=== PATIENT | female | born 1995 | race Caucasian/White ===

== ENCOUNTER 2018-07-07 23:21 | Emergency (ER) | payer BC, OTHER ==
[2018-07-07] MEDS ORDERED: NS 1,000 ML IV ONE (23:39)
[2018-07-07] MEDS ORDERED: ONDANSETRON 4 MG/2 ML VIAL IVP ONE (23:39)
[2018-07-08 00:26] LABS: PLATELET COUNT 250 10^3/uL (150-400)
--- NOTE | 2018-07-08 00:27 | EDPHY ---
H & P Stated Complaint: NAUSEA VOMITING AND DIARRHEA AFTER SUSHI Time Seen by Provider: 07/07/18 23:38 HPI/ROS: HPI The patient presents with nausea, vomiting, diarrhea which began at about 9:30 p.m. Tonight. Symptoms began with nausea and then about 30 min later she had 5 episodes of nonbloody nonbilious emesis accompanied by diarrhea which she describes as loose watery stools. She says she was shivering but did not have any fevers. As she is now still feeling nauseated with cramping diffuse abdominal pain. As she ate a meal of sushi which included raw fish at about 4: 00 p.m.. She is status post appendectomy.. REVIEW OF SYSTEMS 10 systems were reviewed and negative with the exception of the elements mentioned in the history of present illness. PMHx: She has had an appendectomy Soc Hx: Student at [employer] PHYSICAL General Appearance: Alert, no distress Eyes: Pupils equal and round no pallor or injection ENT, Mouth: Mucous membranes moist Respiratory: There are no retractions, lungs are clear to auscultation Cardiovascular: Regular rate and rhythm Gastrointestinal: Abdomen is soft and non-tender, no masses, bowel sounds normal Neurological: A&O, moves all extremities Skin: Warm and dry, no rashes Musculoskeletal: Neck is supple non tender Extremities: symmetrical, full range of motion Psychiatric: Patient is oriented X 3, there is no agitation Source: Patient Exam Limitations: No limitations - Personal History LMP (Females 10-55): 22-28 Days Ago Current Tetanus/Diphtheria Vaccine: Yes Current Tetanus Diphtheria and Acellular Pertussis (TDAP): Yes Tetanus Vaccine Date: <5 years - Medical/Surgical History Hx Asthma: No Hx Chronic Respiratory Disease: No Hx Diabetes: No Hx Cardiac Disease: No Hx Renal Disease: No Hx Cirrhosis: No Hx Alcoholism: No Hx HIV/AIDS: No Hx Splenectomy or Spleen Trauma: No Other PMH: PMH: "childhood kidney problems", gastritis,. PSH: wisdom teeth removed, appy 2016 - Social History Smoking Status: Former smoker Constitutional: Initial Vital Signs Temperature (C) 37.1 C 07/07/18 23:25 Heart Rate 70 07/07/18 23:25 Respiratory Rate 18 07/07/18 23:25 Blood Pressure 134/74 H 07/07/18 23:25 O2 Sat (%) 97 07/07/18 23:25 O2 Delivery Mode Room Air Allergies/Adverse Reactions: No Known Allergies Allergy (Unverified 07/07/18 23:27) Home Medications: Medication Instructions Recorded NK [No Known Home Meds] 07/07/18 Medical Decision Making Differential Diagnosis: 23-year-old female presents with about 1 hr of nausea, vomiting, diarrhea. On exam, she is well-appearing, vital signs normal, abdominal exam benign. Differential diagnosis includes toxin mediated enterocolitis, viral gastroenteritis, less likely diverticulitis. In the emergency department, patient received IV fluids, Zofran. Labs were checked and were unremarkable. She feels well enough to go home and was able to tolerate a p.o. Challenge. I suspect food poisoning. I have explained this to her. - Data Points Laboratory Results: Laboratory Results 07/07/18 23:50 07/07/18 23:50 07/07/18 07/07/18 23:50 23:50 WBC 10.87 10^3/uL H 10^3/uL (3.80-9.50) RBC 4.54 10^6/uL 10^6/uL (4.18-5.33) Hgb 14.3 g/dL g/dL (12.6-16.3) Hct 41.8 % % (38.0-47.0) MCV 92.1 fL fL (81.5-99.8) MCH 31.5 pg pg (27.9-34.1) MCHC 34.2 g/dL g/dL (32.4-36.7) RDW 12.5 % % (11.5-15.2) Plt Count 250 10^3/uL 10^3/uL (150-400) MPV 10.1 fL fL (8.7-11.7) Neut % (Auto) 60.0 % % (39.3-74.2) Lymph % (Auto) 29.7 % % (15.0-45.0) Divide % (Auto) 6.5 % % (4.5-13.0) Eos % (Auto) 2.7 % % (0.6-7.6) Baso % (Auto) 0.8 % % (0.3-1.7) Nucleat RBC Rel Count 0.0 % % (0.0-0.2) Absolute Neuts (auto) 6.52 10^3/uL H 10^3/uL (1.70-6.50) Absolute Lymphs (auto) 3.23 10^3/uL H 10^3/uL (1.00-3.00) Absolute Monos (auto) 0.71 10^3/uL 10^3/uL (0.30-0.80) Absolute Eos (auto) 0.29 10^3/uL 10^3/uL (0.03-0.40) Absolute Basos (auto) 0.09 10^3/uL 10^3/uL (0.02-0.10) Absolute Nucleated RBC 0.00 10^3/uL 10^3/uL (0-0.01) Immature Gran % 0.3 % % (0.0-1.1) Immature Gran # 0.03 10^3/uL 10^3/uL (0.00-0.10) Sodium 142 mEq/L mEq/L (135-145) Potassium 3.9 mEq/L mEq/L (3.3-5.0) Chloride 104 mEq/L mEq/L (97-110) Carbon Dioxide 27 mEq/l mEq/l (22-31) Anion Gap 11 mEq/L mEq/L (8-16) BUN 18 mg/dL mg/dL (7-23) Creatinine 0.6 mg/dL mg/dL (0.6-1.0) Estimated GFR > 60 Glucose 115 mg/dL H mg/dL (70-100) Calcium 9.4 mg/dL mg/dL (8.5-10.4) Total Bilirubin 0.4 mg/dL mg/dL (0.1-1.4) AST 26 IU/L IU/L (14-46) ALT 32 IU/L IU/L (9-52) Alkaline Phosphatase 80 IU/L IU/L (38-126) Total Protein 7.3 g/dL g/dL (6.3-8.2) Albumin 4.3 g/dL g/dL (3.5-5.0) Medications Given: Discontinued Medications Sodium Chloride (Ns) 1,000 mls @ 0 mls/hr IV ONCE ONE; Wide Open PRN Reason: Protocol Stop: 07/07/18 23:40 Last Admin: 07/07/18 23:47 Dose: 1,000 mls Ondansetron HCl (Zofran) 4 mg IVP EDNOW ONE Stop: 07/07/18 23:40 Last Admin: 07/07/18 23:47 Dose: 4 mg Ondansetron HCl (Zofran) 4 mg IVP EDNOW ONE Stop: 07/08/18 00:38 Last Admin: 07/08/18 00:40 Dose: 4 mg Ondansetron HCl (Zofran Odt 4 Mg Prepack#2) 1 btl TAKEHOME EDNOW ONE Stop: 07/08/18 02:31 Last Admin: 07/08/18 02:49 Dose: 1 btl Departure - Departure Disposition: Home, Routine, Self-Care Clinical Impression: Vomiting and diarrhea Condition: Good Instructions: Gastroenteritis (ED) Additional Instructions: Please return to the emergency department if your worse in any way. Referrals: [facility] [Clinic] - As per Instructions Stand Alone Forms: School Excuse
[2018-07-08] MEDS ORDERED: ONDANSETRON 4 MG/2 ML VIAL IVP ONE (00:37)
[2018-07-08] MEDS ORDERED: ONDANSETRON 4MG PREPACK#2 BTL TAKEHOME ONE (02:30)
[2018-07-08 03:16] VITALS: BP 112/63
== END 2018-07-08 03:17 | disposition home or self-care (01) ==
DX: R11.2 Nausea with vomiting, unspecified (principal); R19.7 Diarrhea, unspecified; E86.9 Volume depletion, unspecified; Q42.3 Congenital absence, atresia and stenosis of anus without fistula; Z87.891 Personal history of nicotine dependence
CPT/HCPCS: 96374; J2405